=== PATIENT | female | born 1990 | race Native Hawaiian/Other Pacific Islander ===

== ENCOUNTER 2025-04-06 11:06 | Outpatient (REF) | payer MEDICAID, SELFPAY ==
--- NOTE | ~2025-04-06 | XR_ITS ---
EXAMINATION: XR LUMBOSACRAL SPINE CLINICAL INFORMATION: acute on chronic lower back pain COMPARISON: None available. TECHNIQUE: Three views of the lumbosacral spine. FINDINGS: There is no scoliosis. Mild straightening of the normal lordosis. There are no subluxations. There are no fractures, compression deformities, or suspicious bone lesions. Very mild disc degeneration L5-S1. Disc spaces otherwise preserved. Facets normally aligned. No significant facet arthrosis. The sacrum and SI joints appear grossly normal. There are no soft tissue abnormalities. XR/XR lumbar spine 2-3V IMPRESSION: 1. No acute bony abnormalities. 2. Early disc degeneration L5-S1. Electronically signed by: Librado Mckeon MD 04/06/2025 01:18 PM EDT
--- OUTSIDE RECORDS SUMMARY | 2025-04-06 12:18 | XMS_ITS | Encounter Summary ---
Author Organization [employer] Address [address] [facility] [address] [place] [address] Care Team Providers Care Laboratory Geneticist Name Role Phone Mario Ewing MD Primary Care Provider [phone] JanuaryRuben Primary Care Provider [phone] Karen Hsu NP Primary Care Provider [phone] Encounter Details Date Type Department Care Team (Late st Contact Info) Description 06/17/[address] [facility] [address] [place] [address] Mario Ewing MD [address] [place] [phone] Social History Tobacco Use Types Packs/Day Years Used Date Smoking Tobacco: Never Passive Smoke Exposure: Never Smokeless Tobacco: Never Alcohol Use Standard Drinks/Week Comments Never 0 (1 standard drink = 0.6 oz pur e alcohol) Alcohol Answer Date Recorded How often do you have a drink containing alcohol ? 0 05/29/2024 How many drinks containing a lcohol do you have on a typical day when you are drinking? 0 05/29/2024 How often do you have six or more drinks on one occasion? 0 05/29/2024 Housing Stability Answer Date Recorded What is your housing situation today? I do not have housing (Staying with others, in a hotel, in a longterm, living outside on the street, on a beach, in a car, or in a park 05/29/[address] you li ve. Do you have problems with any of the following? None of the above 05/29/2024 Food Insecurity Answer Date Recorded Within the past 12 months, y ou worried that your food would run out before you got money to buy more: Never True 05/29/2024 Within the past 12 months,th e food you bought just didn't last and you didn't have enough money to get more: Never True 08/2024 Transportation Answer Date Recorded In the past 12 months, has l ack of transportation kept you from medical appts, meetings, work or from getting things needed for daily living? No 05/29/2024 Intimate Partner Violence Answer Date R ecorded Within the last year, have y ou been afraid of your partner or ex-partner? 2 05/29/2024 Within the last year, have y ou been humiliated or emotionally abused in other ways by your partner or ex-partner? 2 Within the last year, have y ou been kicked, hit, slapped, or otherwise physically hurt by your partner or ex-partner? 2 05/29/2024 Within the last year, have y ou been raped or forced to have any kind of sexual activity by your partner or ex-partner? 2 05/29/2024 Utilities Answer Date Recorded In the past 12 months, has t he electric, gas, oil or water company threatened to shut off services in your home? No 05/29/2024 Depression Answer Date Recorded Patient Health Questionnaire-2 Score 0 05/29/2024 Internet Access Answer Date Recorded Internet Access Q1 Yes 05/29/2024 Internet Access Q2 Not on file 05/29/2024 Comments Unknown Sex and Gender Information Value Date Recorded Sex Assigned at Female 02/07/2024 1:32 PM EDT Legal Sex Female 11:35 AM EDT Gender Identity Female 02/07/2024 1:32 PM EDT Sexual Orientation Straight 05/14/2024 1 :10 PM EDT documented as of this encounter Miscellaneous Notes * Telephone Encounter - Zoila Alvarez - 06/17/2024 10:26 AM EDT refaxed * Telephone Encounter - Otilia William - 06/17/2024 10:03 AM EDT Pt is calling with the fax # that was asked for for the referral for the ENT. .Needs it resent. Referal # [id number] documented in this encounter Plan of Treatment Upcoming Encounters Date Type Department Care Team (Late st Contact Info) Description 05/01/2025 1:40 PM EDT Office Visit [facility] [address] [place] [phone] Karen Hsu NP [address] [place] [address] [phone] 06/03/2025 9:15 AM EDT Office Visit [facility] [address] [place] [address] [phone] Nazia Rm MD [address] [place] [address] [phone] documented as of this encounter Visit Diagnoses Not on filedocumented in this encounter Care Teams Laboratory Geneticist Relationship Specialty Start Date End Date Mario Ewing MD PCP - General Internal Medicine 05/29/24 11/12/24JanuaryRuben AGNP [address] [place] [address] [phone] PCP - General Family Medicine 11/13/24 12/25/24 Karen Hsu NP [address] [place] [address] [phone] PCP - General Family Medicine 12/26/24 03/15/25 documented as of this encounter
--- OUTSIDE RECORDS SUMMARY | 2025-04-06 12:18 | XMS_ITS | Clinical Summary ---
Author Organization [facility] Address [address] [address] Phone Care Team Providers Care District Branch Manager Name Role Phone Pcp, Unknown Primary Care Provider Unavailabl e Allergies No known active allergies Medications No known medications Social History Tobacco Use Types Packs/Day Years Used Date Smoking Tobacco: Never Passive Smoke Exposure: Never Tobacco Cessation:Counseling Given: Not Answered Alcohol Use Standard Drinks/Week Comments Yes 0 (1 standard drink = 0.6 oz pur e alcohol) social Education Answer Date Recorded Are you interested in more education? Not on estefani e 04/05/2024 Are you concerned about learning? Not on file 04/05/2024 No 04/05/2024 No 04/05/2024 Digital Access Answer Date Recorded No 04/05/2024 No 04/05/2024 Reliable internet access at home? Not on file 04/05/2024 Device with a working camera? Not on file Intimate Partner Violence Answer Date R ecorded Are you denied basic needs s uch as food, clothing, or medical care? No 04/05/2024 In the past 12 months have y ou been in a relationship with a person who hurts, threatens, or tries to control you? No 04/05/2024 Are you denied basic needs s uch as food, clothing, or medical care? No 04/05/2024 In the past 12 months have y ou been in a relationship with a person who hurts, threatens, or tries to control you? No 04/05/2024 Comments No Sex and Gender Information Value Date Recorded Sex Assigned at Female 04/05/2024 5:55 PM EDT Legal Sex Female 4:04 PM EDT Gender Identity Female 04/05/2024 5:55 PM EDT Sexual Orientation Straight 04/05/2024 5: 55 PM EDT Last Filed Vital Signs Vital Sign Reading Time Taken Comments Blood Pressure 128/88 04/07/2024 8:20 AM EDT Pulse 86 04/07/2024 8:20 AM EDT Temperature 37 C (98.6 F) 04/07/2024 8:20 AM EDT Respiratory Rate 18 04/07/2024 8:20 AM EDT Oxygen Saturation 100% 04/07/2024 8:20 AM EDT Inhaled Oxygen Concentration - - Weight 64 kg (141 lb) 04/05/2024 5:52 PM EDT Height 167.6 cm (5' 6 ) 04/05/2024 5:52 PM EDT Body Mass Index 22.76 04/05/2024 5:52 PM EDT Plan of Treatment Health Maintenance Due Date Last Done Comments Adult Td,Tdap Booster 1988 DEPRESSION SCREENING 2000 HEPATITIS C SCREENING 2006 HIV ONE-TIME SCREENING (18-6 5 YEARS) 2006 PAP SMEAR 2009 SMOKING STATUS SCREENING (On ce After 26 Yrs) 2014 COVID-19 VACCINE (2023-2 5 season) 2024 HEPATITIS A VACCINES Aged Out No long er eligible based on patient's age to complete this topic HIB VACCINES Aged Out No longer eligi ble based on patient's age to complete this topic MENINGOCOCCAL VACCINES (ACWY) Aged Out No longer eligible based on patient's age to complete this topic MENINGOCOCCAL VACCINES (B) Aged Out N o longer eligible based on patient's age to complete this topic PNEUMOCOCCAL VACCINES (0-49 years) Aged Out No longer eligible based on patient's age to complete this topic Medical Devices Not on file Insurance [employer] [facility] S[employer] NET FULL [employer] [facility] [employer] NET FULL [employer] NET FULL [employer] [facility] NET [employer]ULL [employer] [place] [address] [address] NET FULL Care Teams District Branch Manager Relationship Specialty Start Date End Date Pcp, Unknown PCP - General 04/05/24 Additional Source Comments The information contained in this document represents components of the legal health record. It is not the complete legal health record.[facility]
== END 2025-04-06 11:07 | disposition home or self-care (01) ==
LOC: HO.HHCL 11:06
PROVIDERS: PCP Internal Medicine; Visit Provider Internal Medicine
DX: M51.370 Other intervertebral disc degeneration, lumbosacral region with discogenic back pain only (principal)
CPT/HCPCS: 72100

== ENCOUNTER → 2025-04-06 11:56 | Outpatient (BNV) | payer MEDICAID, SELFPAY | PROVIDERS: PCP Internal Medicine; Visit Provider Radiology Diagnostic Radiology | DX: M54.50 Low back pain, unspecified (principal) | CPT/HCPCS: 72100 ==